=== PATIENT | male | born 1975 | race Caucasian/White ===

== ENCOUNTER → 2016-11-12 | Outpatient (CLI) | payer OTHER ==
--- NOTE | 2016-11-12 17:23 | DX ---
Chest, Two Views at 1148 hours History: R05, cough, productive cough, fatigue. Comparison: October 2009 Findings: Cardiac silhouette is within normal range. Slight blunting of the right costophrenic angle which appears new and may represent minimal right pleural effusion. However no definite focal pneumon ia. No pneumothorax. IMPRESSION: 1. Possible minimal right pleural effusion versus scarring. 2. No definite focal pneumonia. 3. Consider lateral decubitus views of the chest for further evaluation.
== END ==
LOC: BRMIMAGING 11:30
PROVIDERS: ATTEND Physician Assistant Medical
DX: R05 Cough (principal)
CPT/HCPCS: 71020-PO